=== PATIENT | female | born 1990 | race Caucasian/White ===

== ENCOUNTER 2017-04-13 19:12 | Emergency (ER) | payer OTHER ==
[~2017-04-13] VITALS: Ht 162.6 cm; Wt 52.6 kg
[2017-04-13] MEDS ORDERED: PREN-58 PO (19:19)
--- NOTE | 2017-04-13 19:20 | NUR ---
AWAITING FOR A BED AVAILABLE; VSS- AFEBRILE
--- NOTE | 2017-04-13 19:22 | NUR ---
NO OBVIOUS BLEEDING NOTED; DENIES VAGINAL BLEEDING ON ASSESSMENT
[2017-04-13 19:57] LABS: APPEARANCE,URINE CLEAR (CLEAR); BILIRUBIN,URINE NEGATIVE (NEGATIVE); BLOOD, URINE NEGATIVE Ery/uL (NEGATIVE); COLOR,URINE YELLOW (YELLOW); KETONES,URINE 1+ (NEGATIVE); LEUKOCYTE ESTERASE ,URINE NEGATIVE (NEGATIVE); NITRITE, URINE NEGATIVE (NEGATIVE); PROTEIN,URINE TRACE mg/dl (NEGATIVE); UGLUCOSE NEGATIVE (NEGATIVE)
[2017-04-13 20:05] LABS: BACTERIA,URINE Rare /HPF (None Seen); RBC,URINE 0-2 /HPF (0-2); SQUAMOUS EPITHELIAL CELL,UR Few /HPF (None Seen); WBC,URINE 0-2 /HPF (0-3)
--- NOTE | 2017-04-13 20:05 | NUR ---
LESLI CISNEROS AT BS.
[2017-04-13] MEDS ORDERED: ACETAMINOPHEN 650 MG/20.3 ML UDC ONE (21:01)
[2017-04-13] MEDS: ACETAMINOPHEN 650 MG/20.3 ML UDC PO ONE (21:02)
--- NOTE | 2017-04-13 21:22 | NUR ---
Patient discharged to home in stable condition. Written and verbal after care instructions given. Patient verbalizes understanding of instruction.
[2017-04-13 21:23] VITALS: BP 116/69
== END 2017-04-13 21:28 | disposition home or self-care (01) ==
LOC: ER 19:14
DX: O26.892 Other specified pregnancy related conditions, second trimester (principal); R10.2 Pelvic and perineal pain; Z3A.20 20 weeks gestation of pregnancy
CPT/HCPCS: 76805-TC; 81000-TC; A4606; Z7610